=== PATIENT | male | born 1990 | race Caucasian/White ===

== ENCOUNTER 2018-05-11 09:41 | Emergency (ER) | payer OTHER ==
[2018-05-11] MEDS ORDERED: METHOCARBAMOL 750 MG TABLET PO ONE (10:26)
[2018-05-11] MEDS ORDERED: KETOROLAC TROMETHAMINE 60 MG/2 ML SDV IM ONE (10:26)
--- NOTE | 2018-05-11 10:26 | ER Document Report ---
ED General - General Chief Complaint: Back Pain Stated Complaint: BACK/LEG PAIN Time Seen by Provider: 05/11/18 10:13 Primary Care Provider: TD TAFOYA MD [ACTIVE STAFF] - Follow up in 3-5 days Notes: Patient is a 27-year-old male with history of low back pain that presents to the emergency department for chief complaint of right sciatic pain. Patient states that this pain is been going on for a few days now, to a chiropractor last few days but not much improvement, has been a total of 5 days of pain. He currently rates it as a 7 out of 10 describes as an aching sensation that radiates down the back of his leg to the knee. He had some tingling associated with it as well. Denies having any fevers, chills, bladder or bowel incontinence, or urinary retention. He states he was taking Motrin at home, and smoking marijuana without much relief of his pain so he decided come to the emergency department. Past Medical History: Chronic low back pain Past Surgical History: Appendectomy Social History: Denies tobacco use, alcohol use, but admits to marijuana use Family History: Reviewed and noncontributory for presenting illness Allergies: Reviewed, see documented allergy list. REVIEW OF SYSTEMS: Other than noted above, the 12 point review of systems was reviewed with the patient and were negative, all pertinent findings are included in the HPI. PHYSICAL EXAMINATION: Vital signs reviewed, nursing noted reviewed. GENERAL: Well-appearing, well-nourished and in no acute distress. HEAD: Atraumatic, normocephalic. EYES: Eyes appear normal, sclera anicteric, conjunctiva are normal. ENT: Moist mucous membranes. NECK: Normal range of motion, supple without lymphadenopathy LUNGS: Breath sounds clear to auscultation bilaterally and equal. No wheezes rales or rhonchi. HEART: Regular rate and rhythm without murmurs EXTREMITIES: Nontender, good range of motion, no pitting or edema. Back: Positive straight leg raising, with pain going down the leg with extension of the knee, mild tenderness to palpation to the lower back. NEUROLOGICAL: No focal neurological deficits. Moves all extremities spontaneously Motor and sensory grossly intact on exam. Patellar reflexes and Achilles tendon reflexes are +2/4 bilaterally and equal. PSYCH: Normal mood, normal affect. SKIN: Warm, Dry, normal turgor, no rashes or lesions noted on exposed skin TRAVEL OUTSIDE OF THE [place] IN LAST 30 DAYS: No - Related Data Allergies/Adverse Reactions: No Known Allergies Allergy (Verified 05/11/18 09:42) Past Medical History - Social History Smoking Status: Current Every Day Smoker Frequency of alcohol use: Social Drug Abuse: Marijuana Family History: Reviewed & Not Pertinent Patient has suicidal ideation: No Patient has homicidal ideation: No Pulmonary Medical History: Reports: Hx Asthma Renal/ Medical History: Reports: Hx Kidney Stones. Denies: Hx Peritoneal Dialysis GI Medical History: Denies: Hx Ulcer Musculoskeletal Medical History: Reports Hx Arthritis, Reports Hx Musculoskeletal Trauma Traumatic Medical History: Reports: Hx Fractures - Left elbow Past Surgical History: Reports: Hx Appendectomy, Hx Oral Surgery - [place] teeth - Immunizations Hx Diphtheria, Pertussis, Tetanus Vaccination: No Physical Exam - Vital signs Vitals: Temp Pulse Resp BP Pulse Ox 97.6 F 79 16 127/74 H 99 05/11/18 09:47 05/11/18 09:47 05/11/18 09:47 05/11/18 09:47 05/11/18 09:47 Course - Re-evaluation Re-evalutation: Patient seen and examined vital signs reviewed. Patient was evaluated and treated as appropriate for the patient's presenting symptoms and complaint, with consideration of any critical or life threatening conditions that may be associated with their obtained history and exam as noted above. Patient was treated with IM Toradol 60 mg, Robaxin 750 mg Evaluation was most consistent with right-sided sciatica, no indication for imaging at this time, no new injury, no significant neurological symptoms., discharge patient home with prednisone, Robaxin, and naproxen advised to follow- up with orthopedics. Plan of care was discussed with the patient at this point, after careful consideration I feel that that patient can be discharged from the emergency department, the patient was educated treatments and reasons to return to the emergency department based on their presumed diagnosis as noted above, they were advised to followup with a primary care physician in 2-3 days. Patient was agreeable to plan of care. *Note is created using voice recognition software and may contain spelling, syntax or grammatical errors. - Vital Signs Vital signs: Temp Pulse Resp BP Pulse Ox 98.6 F 93 16 153/98 H 99 05/11/18 09:55 05/11/18 09:55 05/11/18 09:55 05/11/18 09:55 05/11/18 09:55 Discharge - Discharge Clinical Impression: Sciatica Qualifiers: Laterality: right Qualified Code(s): M54.31 - Sciatica, right side Condition: Stable Disposition: HOME, SELF-CARE Instructions: Sciatica ([facility]) Additional Instructions: Please follow-up with orthopedic surgery, take all medications as prescribed and complete the entire course of steroids that have been prescribed. He can take the anti-inflammatory after finishing the steroids, in the meantime he can take a muscle relaxer, or Tylenol. If you are taking the naproxen as prescribed, do not take any Motrin or ibuprofen with it. Prescriptions: Methocarbamol [Robaxin 750 mg Tablet] 750 mg PO Q6H PRN #30 tablet PRN Reason: back pain Naproxen [Naprosyn] 500 mg PO BID PRN #30 tablet PRN Reason: back pain Prednisone [Deltasone 10 mg Tablet] 50 mg PO DAILY #25 tablet Forms: Return to Work Referrals: TD TAFOYA MD [ACTIVE STAFF] - Follow up in 3-5 days
--- NOTE | 2018-05-11 11:09 | ER Document Report ---
Doctor's Note Notes: 05/11/18 11:08 Patient was in the waiting room waiting to be discharged, and felt shaking all over, and pain all over, and he may have had a reaction on the medications given, patient was placed into room and monitored. He did not have any rash or difficulty breathing.
[2018-05-11 11:26] VITALS: BP 136/70
--- NOTE | 2018-05-11 11:43 | ER Document Report ---
ED General - General Chief Complaint: Back Pain Stated Complaint: BACK/LEG PAIN Time Seen by Provider: 05/11/18 10:13 Primary Care Provider: TD TAFOYA MD [ACTIVE STAFF] - Follow up in 3-5 days TRAVEL OUTSIDE OF THE [place] IN LAST 30 DAYS: No - HPI Patient complains to provider of: Possible medication reaction back pain Notes: Patient was seen in triage area for his back pain please see those notes at the receiving medications during his discharge process started "feeling funny" therefore was redirected back into the ER for further observation. Upon my evaluation patient is lying flat patient states now feeling better although still having pain. Patient is able to sit up in bed with some difficulty however sit style in no obvious distress. Patient denies any shortness of breath nausea vomiting fevers chills denies any difficulty breathing at this time palpitations. Patient states that after receiving the injections having increased pain pain all over - Related Data Allergies/Adverse Reactions: No Known Allergies Allergy (Verified 05/11/18 09:42) Past Medical History - Social History Smoking Status: Current Every Day Smoker Frequency of alcohol use: Social Drug Abuse: Marijuana Family History: Reviewed & Not Pertinent Patient has suicidal ideation: No Patient has homicidal ideation: No Pulmonary Medical History: Reports: Hx Asthma Renal/ Medical History: Reports: Hx Kidney Stones. Denies: Hx Peritoneal Dialysis GI Medical History: Denies: Hx Ulcer Musculoskeletal Medical History: Reports Hx Arthritis, Reports Hx Musculoskeletal Trauma Traumatic Medical History: Reports: Hx Fractures - Left elbow Past Surgical History: Reports: Hx Appendectomy, Hx Oral Surgery - [place] teeth - Immunizations Hx Diphtheria, Pertussis, Tetanus Vaccination: No Review of Systems - Review of Systems Constitutional: Other - Possible medication reaction EENT: No symptoms reported Cardiovascular: No symptoms reported Respiratory: No symptoms reported Gastrointestinal: No symptoms reported Genitourinary: No symptoms reported Male Genitourinary: No symptoms reported Musculoskeletal: No symptoms reported Skin: No symptoms reported Hematologic/Lymphatic: No symptoms reported Neurological/Psychological: No symptoms reported Physical Exam - Vital signs Vitals: Temp Pulse Resp BP Pulse Ox 97.6 F 79 16 127/74 H 99 05/11/18 09:47 05/11/18 09:47 05/11/18 09:47 05/11/18 09:47 05/11/18 09:47 Interpretation: Normal - General General appearance: Appears well, Alert - HEENT Head: Normocephalic, Atraumatic Eyes: Normal Pupils: PERRL - Respiratory Respiratory status: No respiratory distress Chest status: Nontender Breath sounds: Normal Chest palpation: Normal - Cardiovascular Rhythm: Regular Heart sounds: Normal auscultation Murmur: No - Abdominal Inspection: Normal Distension: No distension Bowel sounds: Normal Tenderness: Nontender Organomegaly: No organomegaly - Back Back: Normal, Nontender - Extremities General upper extremity: Normal inspection, Nontender, Normal color, Normal ROM, Normal temperature General lower extremity: Normal inspection, Nontender, Normal color, Normal ROM, Normal temperature, Normal weight bearing. No: Mustapha's sign - Neurological Neuro grossly intact: Yes Cognition: Normal Orientation: AAOx4 [place] Coma Scale Eye Opening: Spontaneous [place] Coma Scale Verbal: Oriented [place] Coma Scale Motor: Obeys Commands [place] Coma Scale Total: 15 Speech: Normal Motor strength normal: LUE, RUE, LLE, RLE Sensory: Normal - Psychological Associated symptoms: Normal affect, Normal mood - Skin Skin Temperature: Warm Skin Moisture: Dry Skin Color: Normal Course - Re-evaluation Re-evalutation: 05/11/18 14:28 Patient was observed able to tolerate p.o. able to ambulate out of the ER by himself according to nursing staff. Physical examination revealed no signs of an acute allergic reaction airway intact - Vital Signs Vital signs: Temp Pulse Resp BP Pulse Ox 97.3 F 77 18 136/70 H 97 05/11/18 11:25 05/11/18 11:25 05/11/18 11:25 05/11/18 11:25 05/11/18 11:25 Discharge - Discharge Clinical Impression: possible drug reaction Sciatica Qualifiers: Laterality: right Qualified Code(s): M54.31 - Sciatica, right side Condition: Stable Disposition: HOME, SELF-CARE Instructions: Drug Effects ([facility]), Sciatica ([facility]) Additional Instructions: Please follow-up with orthopedic surgery, take all medications as prescribed and complete the entire course of steroids that have been prescribed. He can take the anti-inflammatory after finishing the steroids, in the meantime he can take a muscle relaxer, or Tylenol. If you are taking the naproxen as prescribed, do not take any Motrin or ibuprofen with it. Prescriptions: Naproxen [Naprosyn] 500 mg PO BID PRN #30 tablet PRN Reason: back pain Prednisone [Deltasone 10 mg Tablet] 50 mg PO DAILY #25 tablet Forms: Return to Work Referrals: DT TAFOYA MD [ACTIVE STAFF] - Follow up in 3-5 days
== END 2018-05-11 10:51 | disposition home or self-care (01) ==
LOC: ER 09:41
DX: M54.31 Sciatica, right side (principal); M54.9 Dorsalgia, unspecified; F17.200 Nicotine dependence, unspecified, uncomplicated; Z79.899 Other long term (current) drug therapy; J45.909 Unspecified asthma, uncomplicated
CPT/HCPCS: 99283; 96372; J1885; J3490